=== PATIENT | male | born 1980 | race Caucasian/White ===

== ENCOUNTER 2019-02-23 11:57 | Emergency (ER) | payer BC ==
[2019-02-23 12:04] VITALS: TEMP 98.4; BMI 29.0
--- NOTE | 2019-02-23 12:35 | PDOC ---
History of Present Illness - General Chief Complaint: Pain, Acute Stated Complaint: ABD.PAIN Time Seen by Provider: 02/23/19 12:29 History Source: Patient Exam Limitations: No Limitations Past History - Travel Traveled outside of the country in the last 30 days: No Close contact w/someone who was outside of country & ill: No - Past Medical History Allergies/Adverse Reactions: Allergies Allergy/AdvReac Type Severity Reaction Status Date / Time No Known Allergies Allergy Verified 02/23/19 12:01 Home Medications: Ambulatory Orders NK [No Known Home Medication] 02/23/19 COPD: No Dialysis: No - Surgical History Cholecystectomy: No - Immunization History Immunization Up to Date: No - Suicide/Smoking/Psychosocial Hx Smoking History: Never smoked Have you smoked in the past 12 months: No Information on smoking cessation initiated: No Hx Alcohol Use: No Drug/Substance Use Hx: No Review of Systems - Review of Systems Able to Perform ROS?: Yes Comments:: 02/23/19 12:32 CONSTITUTIONAL: Absent: fever, chills, diaphoresis, generalized weakness, malaise, loss of appetite HEENT: Absent: rhinorrhea, nasal congestion, throat pain, throat swelling, difficulty swallowing, mouth swelling, ear pain, eye pain, visual Changes CARDIOVASCULAR: Absent: chest pain, loss of consciousness, palpitations, irregular heart rate, peripheral edema RESPIRATORY: Absent: cough, shortness of breath, dyspnea with exertion, orthopnea, wheezing, stridor, hemoptysis GASTROINTESTINAL: Present: abdominal pain Absent: abdominal distension, nausea, vomiting, diarrhea , constipation, melena, hematochezia GENITOURINARY: Absent: dysuria, frequency, urgency, hesitancy, hematuria, flank pain, genital pain MUSCULOSKELETAL: Absent: myalgia, arthralgia, joint swelling SKIN: Absent: rash, itching, pallor HEMATOLOGIC/IMMUNOLOGIC: Absent: easy bleeding, easy bruising, lymphadenopathy, frequent infections ENDOCRINE: Absent: unexplained weight gain, unexplained weight loss, heat intolerance, cold intolerance NEUROLOGIC: Absent: headache, focal weakness or paresthesias, dizziness, unsteady gait, seizure, mental status changes, bladder or bowel incontinence PSYCHIATRIC: Absent: anxiety, depression, suicidal or homicidal ideation, hallucinations. Is the patient limited Irish proficient: No *Physical Exam - Vital Signs Last Vital Signs Temp Pulse Resp BP Pulse Ox 98.4 F 68 18 128/85 98 02/23/19 12:02 02/23/19 12:02 02/23/19 12:02 02/23/19 12:02 02/23/19 12:02 - Physical Exam Comments: 02/23/19 12:35 GENERAL: Well developed, well nourished. Awake and alert. No acute distress. HEENT: Normocephalic, atraumatic. PERRLA, EOMI. No conjunctival pallor. Sclera are non- icteric. Moist mucous membranes. Oropharynx is clear. NECK: Supple. Full ROM. No JVD. Carotid pulses 2+ and symmetric, without bruits. No thyromegaly. No lymphadenopathy. CARDIOVASCULAR: Regular rate and rhythm. No murmurs, rubs, or gallops. Distal pulses are 2+ and symmetric. PULMONARY: No evidence of respiratory distress. Lungs clear to auscultation bilaterally. No wheezing, rales or rhonchi. ABDOMINAL: TTP of the RLQ, suprapubic area. Soft. Non-distended. No rebound or guarding. No organomegaly. Normoactive bowel sounds. MUSCULOSKELETAL Normal range of motion at all joints. No bony deformities or tenderness. No CVA tenderness. EXTREMITIES: No cyanosis. No clubbing. No edema. No calf tenderness. SKIN: Warm and dry. Normal capillary refill. No rashes. No jaundice. NEUROLOGICAL: Alert, awake, appropriate. Cranial nerves 2-12 intact. No deficits to light touch and temperature in face, upper extremities and lower extremities. No motor deficits in the in face, upper extremities and lower extremities. Normoreflexic in the upper and lower extremities. Normal speech. Toes are down- going bilaterally. Gait is normal without ataxia. PSYCHIATRIC: Cooperative. Good eye contact. Appropriate mood and affect. ED Treatment Course - LABORATORY CBC & Chemistry Diagram: 02/23/19 13:16 02/23/19 13:16 Medical Decision Making - Medical Decision Making 02/23/19 15:16 The patient is a 38-year-old male with no past medical history who presents to the ER today for abdominal pain starting this morning. He states that when he woke up he had pain over his bladder. He states the pain was worse after urinating. He states the pain also moved to his right lower quadrant. Denies nausea, vomiting and fevers, hematuria, dysuria. Denies past surgical history. A/P: Lower abdominal pain On exam patient tender to the suprapubic/right lower quadrant region. No rebound guarding or tenderness Basic labs, urine ordered Labs are within normal limits, urine does not show infection at this time. Culture was sent. Ofirmev and IV fluids given CTAP with IV contrast obtained. No acute abdominal pathology at this time including appendicitis. GC Chlamydia also sent to rule out STDs Unclear cause of the abdominal pain at this time. Instructed patient to follow up with his primary care doctor this week for further evaluation I discussed the physical exam findings, ancillary test results and final diagnoses with the patient. I answered all of the patient's questions. The patient was satisfied with the care received and felt comfortable with the discharge plan and treatment plan. The Patient agrees to follow up with the primary care physician/specialist within 24-72 hours. Return precautions were given. *DC/Admit/Observation/Transfer Diagnosis at time of Disposition: Abdominal pain Qualifiers: Abdominal location: lower abdomen, unspecified Qualified Code(s): R10.30 - Lower abdominal pain, unspecified - Discharge Dispostion Disposition: HOME Condition at time of disposition: Stable Decision to Admit order: No - Referrals Referrals: Wicho Martinez MD [Staff Physician] - - Patient Instructions Printed Discharge Instructions: DI for Abdominal Pain-Adult Additional Instructions: You were evaluated for your abdominal pain today. Your lab work was normal. Your CAT scan was also normal. It did not show an emergency in the abdomen. You may take Tylenol 650 mg every 6 hours as needed for pain. Please follow-up with your primary care doctor this week. Return to the ER for worsening pain, vomiting, painful urination, or if you have any changes in your symptoms. Usted fue evaluado para garcia dolor abdominal hoy. Tu trabajo de laboratorio fue normal. Garcia TAC tambin fue normal. No mostr christophe emergencia en el abdomen. Puede jenny Tylenol 650 mg cada 6 horas segn sea necesario para el dolor. Por favor tawanda un seguimiento con garcia mdico de atencin primaria esta semana. Regrese a la olivier de emergencias para empeorar el dolor, los vmitos, la miccin dolorosa o si tiene algn cambio en adriano sntomas. Print Language: LUXEMBOURGER - Post Discharge Activity Forms/Work/School Notes: Back to Work
[2019-02-23] MEDS ORDERED: SODIUM CHLORIDE 1,000 ML IV STA (13:06)
[2019-02-23] MEDS ORDERED: ONDANSETRON 4 MG/2 ML VIAL IVPUSH ONE (13:06)
[2019-02-23] MEDS ORDERED: ACETAMINOPHEN 1000 MG/100 ML VIAL (NON FORMULARY) IVPB ONE (13:06)
[2019-02-23] MEDS ORDERED: ACETAMINOPHEN INJECTION 100 ML IVPB ONE (13:23)
[2019-02-23] MEDS ORDERED: ONDANSETRON 4 MG/2 ML VIAL ONE (13:23)
[2019-02-23 13:26] LABS: BASO % 0.7 % (0-2.0); EOS % 2.5 % (0-4.5); HEMATOCRIT 47.3 % (35.4-49); HEMOGLOBIN 16.5 GM/dL (11.7-16.9); MEAN CELL VOLUME 91.6 fl (80-96); MEAN PLT VOLUME 8.7 fl (7.5-11.1); MONO % 9.7 % (3.8-10.2); NEUT % 61.1 % (42.8-82.8); PLATELET COUNT 152 K/MM3 (134-434); RBC 5.16 M/mm3 (4.00-5.60); RDW 12.1 % (11.9-15.9); WHITE BLOOD COUNT 6.3 K/mm3 (4.0-10.0)
[2019-02-23 13:37] LABS: INR 1.04 (0.83-1.09); PROTHROMBIN TIME (PATIENT) 12.3 SEC (9.7-13.0)
[2019-02-23 13:49] LABS: ALBUMIN 4.3 g/dl (3.4-5.0); BILIRUBIN,TOTAL 0.7 mg/dL (0.2-1); CALCIUM 9.3 mg/dL (8.5-10.1); POTASSIUM 4.3 mmol/L (3.5-5.1); TOT PROT 7.7 g/dl (6.4-8.2)
[2019-02-23 14:57] LABS: EPI CELLS 0.3 /HPF (0-5/HPF); HYALINE CASTS 3 /lpf (0-8); PH,URINE 5.5 (5.0-8.0); URINE APPEARANCE CLEAR; URINE BACTERIA 1.5 /hpf (NEGATIVE); URINE BILIRUBIN NEGATIVE (NEGATIVE); URINE COLOR YELLOW; URINE GLUCOSE (UA) NEGATIVE (NEGATIVE); URINE KETONE TRACE (NEGATIVE); URINE LEUK ESTERASE TRACE (NEGATIVE); URINE NITRITE NEGATIVE (NEGATIVE); URINE PROTEIN NEGATIVE (NEGATIVE); URINE RBC 1 /hpf (0-4); URINE WBC 3 /hpf (0-5)
--- NOTE | 2019-02-23 15:20 | PDOC ---
*Physical Exam - Vital Signs Last Vital Signs Temp Pulse Resp BP Pulse Ox 98.4 F 68 18 128/85 98 02/23/19 12:02 02/23/19 12:02 02/23/19 12:02 02/23/19 12:02 02/23/19 12:02 ED Treatment Course - LABORATORY CBC & Chemistry Diagram: 02/23/19 13:16 02/23/19 13:16 - ADDITIONAL ORDERS Additional order review: Laboratory Results 02/23/19 02/23/19 02/23/19 14:15 13:16 13:16 PT with INR 12.30 INR 1.04 Sodium 141 Potassium 4.3 Chloride 106 Carbon Dioxide 31 Anion Gap 4 L BUN 11.0 Creatinine 1.0 Est GFR (CKD-EPI)AfAm 108.63 Est GFR (CKD-EPI)NonAf 93.73 Random Glucose 78 Calcium 9.3 Total Bilirubin 0.7 AST 26 ALT 45 Alkaline Phosphatase 70 Total Protein 7.7 Albumin 4.3 Lipase 120 Urine Color Yellow Urine Appearance Clear Urine pH 5.5 Ur Specific [place] 1.030 Urine Protein Negative Urine Glucose (UA) Negative Urine Ketones Trace H Urine Blood Negative Urine Nitrite Negative Urine Bilirubin Negative Urine Urobilinogen 1.0 Ur Leukocyte Esterase Trace Urine WBC (Auto) 3 Urine RBC (Auto) 1 Urine Casts (Auto) 3 U Epithel Cells (Auto) 0.3 Urine Bacteria (Auto) 1.5 02/23/19 13:16 RBC 5.16 MCV 91.6 MCHC 35.0 RDW 12.1 MPV 8.7 Neutrophils % 61.1 Lymphocytes % 26.0 Monocytes % 9.7 Eosinophils % 2.5 Basophils % 0.7 - Medications Given in the ED: ED Medications Discontinued Medications Generic Name Dose Route Start Last Admin Trade Name Freq PRN Reason Stop Dose Admin Acetaminophen 1,000 mg 02/23/19 13:06 02/23/19 13:37 Ofirmev Injection - IVPB 02/23/19 13:07 1,000 mg ONCE ONE Administration Sodium Chloride 1,000 mls @ 1,000 mls/hr 02/23/19 13:06 02/23/19 13:37 Normal Saline - IV 02/23/19 14:05 1,000 mls/hr ASDIR STA Administration Ondansetron HCl 4 mg 02/23/19 13:06 02/23/19 13:37 Zofran Injection IVPUSH 02/23/19 13:07 4 mg ONCE ONE Administration Medical Decision Making - Medical Decision Making 02/23/19 15:18 Pt seen by Midlevel Provider under my direct supervision Pt interviewed and examined Ancillary studies reviewed - CT negative for appendicitis, diverticulitis I agree with plan as outlined by Midlevel Provider *DC/Admit/Observation/Transfer Diagnosis at time of Disposition: Abdominal pain - Discharge Dispostion Disposition: HOME Condition at time of disposition: Stable - Referrals Referrals: Wicho Martinez MD [Staff Physician] - - Patient Instructions Printed Discharge Instructions: DI for Abdominal Pain-Adult Additional Instructions: You were evaluated for your abdominal pain today. Your lab work was normal. Your CAT scan was also normal. It did not show an emergency in the abdomen. You may take Tylenol 650 mg every 6 hours as needed for pain. Please follow-up with your primary care doctor this week. Return to the ER for worsening pain, vomiting, painful urination, or if you have any changes in your symptoms. Usted fue evaluado para garcia dolor abdominal hoy. Tu trabajo de laboratorio fue normal. Garcia TAC tambin fue normal. No mostr christophe emergencia en el abdomen. Puede jenny Tylenol 650 mg cada 6 horas segn sea necesario para el dolor. Por favor tawanda un seguimiento con garcia mdico de atencin primaria esta semana. Regrese a la olivier de emergencias para empeorar el dolor, los vmitos, la miccin dolorosa o si tiene algn cambio en adriano sntomas. Print Language: DANISH - Post Discharge Activity Forms/Work/School Notes: Back to Work
[2019-02-23 15:24] VITALS: BP 122/79; PULSE 49
== END 2019-02-23 15:42 | disposition home or self-care (01) ==
LOC: JER 11:57
PROC: 3E033NZ Introduction of Analgesics, Hypnotics, Sedatives into Peripheral Vein, Percutaneous Approach (ICD-10-PCS; principal; 2019-02-23)
PROC: 3E033GC Introduction of Other Therapeutic Substance into Peripheral Vein, Percutaneous Approach (ICD-10-PCS; 2019-02-23)
PROC: 3E0337Z Introduction of Electrolytic and Water Balance Substance into Peripheral Vein, Percutaneous Approach (ICD-10-PCS; 2019-02-23)
DX: R10.30 Lower abdominal pain, unspecified (principal)
CPT/HCPCS: 36415; 74177-TC; 80053; 81003; 83690; 85025; 85610; 87077; 87086; 87491; 87591; 99283-25; J0131; J7030